=== PATIENT | female | born 1935 | race Caucasian/White ===

== ENCOUNTER 2019-02-06 22:30 | Emergency (ER) | payer SELFPAY ==
[2019-02-06] MEDS: HYDROCODONE/APAP (5/325) TAB PO (23:01)
== END 2019-02-07 01:25 | disposition home or self-care (01) ==
LOC: E/R 22:30
DX: S16.1XXA Strain of muscle, fascia and tendon at neck level, initial encounter (principal); S29.019A Strain of muscle and tendon of unspecified wall of thorax, initial encounter; S39.012A Strain of muscle, fascia and tendon of lower back, initial encounter; R51 Headache; V49.50XA Passenger injured in collision with unspecified motor vehicles in traffic accident, initial encounter
CPT/HCPCS: 70450; 72125; 72128; 72131; 99284-25